=== PATIENT | female | born 1995 | race Caucasian/White ===

== ENCOUNTER 2019-07-01 11:42 | Emergency (ER) | payer OTHER ==
--- NOTE | 2019-07-01 11:56 | UC ---
UC General HPI - HPI Summary HPI Summary: Vaginal itching x 1 week - noticed bumps last night No antibiotics recently No abnormal discharge Some dysuria Sexual active - on OCP's. Use condoms consistent Tested recently for STIs - back in Mar. LMP: 2 weeks No concern for No fever. No back pain Some abdominal discomfort Commented on low blood pressure. States she slept in and just came right in. NOrmally eats a normal amount. But states she may have lost some weight normally between 100-107 pounds No vomiting or diarrhea - History of Current Complaint Stated Complaint: PERSONAL Time Seen by Provider: 07/01/19 11:44 - Allergy/Home Medications Allergies/Adverse Reactions: Allergies Allergy/AdvReac Type Severity Reaction Status Date / Time No Known Allergies Allergy Verified 07/01/19 11:52 Home Medications: Home Medications FLUoxetine CAP* [PROzac CAP*] 10 mg PO DAILY 07/01/19 [History Confirmed ] Fluconazole 150 MG TAB* [Diflucan 150 MG TAB*] 150 mg PO ONCE #2 tablet [Rx] Fluticasone NASAL SPRAY 50MCG* [Flonase NASAL SPRAY 50MCG*] 2 spray BOTH NARES DAILY PRN 07/01/19 [History Confirmed 07/01/19] LORazepam TAB(*) [Ativan 0.5 MG TAB (*)] 0.5 mg PO TID PRN 07/01/19 [History Confirmed 07/01/19] Sertraline* [Zoloft*] 62.5 mg PO DAILY 07/01/19 [History Confirmed 07/01/19] PMH/Surg Hx/FS Hx/Imm Hx Previously Healthy: Yes Review of Systems All Other Systems Reviewed And Are Negative: Yes Physical Exam Triage Information Reviewed: Yes Appearance: Well-Appearing Eyes: Positive: Conjunctiva Clear Neck: Positive: Supple Abdomen Description: Positive: Nontender, Soft Pelvic Exam: Positive: External Exam Normal, Other - NO abnormalities on external exam. No lesions or discharge. Attempted speculum exam but patient got very nervous c/o of pain when it was barely into introitus. Stopped exam due to pain and anxiety Course/Dx - Course Course Of Treatment: This is a 23 yr old thin female who is sexually active c/o vaginal itching No concerns on external exam Unable to perform pelvic U/A: Negative Urine GC/C sent Plan Will treat you for a yeast infection today - Take diflucan as prescribed We will contact you regarding any positive results from your urine test If symptoms persist or worsen, despite above treatment recommend follow up with your PCP or return to urgent care - Diagnoses Provider Diagnosis: Candidiasis of female genitalia Discharge ED - Sign-Out/Discharge Documenting (check all that apply): Patient Departure All imaging exams completed and their final reports reviewed: No Studies - Discharge Plan Condition: Fair Disposition: HOME Prescriptions: Fluconazole 150 MG TAB* [Diflucan 150 MG TAB*] 150 mg PO ONCE #2 tablet Patient Education Materials: Yeast Infection (ED) Referrals: No Primary Care Phys,NOPCP [Primary Care Provider] - [facility] [Outside] Additional Instructions: Your urine did not show any evidence of an infection Will treat you for a yeast infection today - Take diflucan as prescribed We will contact you regarding any positive results from your urine test If symptoms persist or worsen, despite above treatment recommend follow up with your PCP or return to urgent care - Billing Disposition and Condition Condition: FAIR Disposition: Home
[2019-07-01 12:01] VITALS: BP 84/55
[2019-07-02 12:56] LABS: Chlamydia trachomatis NAA Negative (Negative); Neisseria gonorrhoeae (GC) NAA Negative (Negative)
== END 2019-07-01 12:40 | disposition home or self-care (01) ==
LOC: UCEAST 11:42
DX: B37.3 Candidiasis of vulva and vagina (principal); R30.0 Dysuria
CPT/HCPCS: 81003; 84702; 87491; 87591; 99212; G0463

== ENCOUNTER 2019-07-15 00:43 | Emergency (ER) | payer OTHER ==
[2019-07-15 01:52] LABS: Rapid Strep Molecular Negative (Negative)
[2019-07-15 01:58] LABS: Influenza A Molecular Negative (Negative); Influenza B Molecular Negative (Negative)
[2019-07-15 02:28] VITALS: BP 00/00
== END 2019-07-15 02:25 | disposition home or self-care (01) ==
LOC: ED 00:43